=== PATIENT | female | born 1970 | race Caucasian/White ===

== ENCOUNTER → 2016-09-12 | Outpatient (CLI) | payer OTHER ==
[~2016-09-12] MED LIST: BACITAB3 PO; BENA25CA2 PO; CIPR500T89 PO; CLAR1TAB2 PO; COCO1000 PO; COLA100C PO; DEPO150I IM; FLAG500T PO; LEVA750T PO; MIRA3350 PO; NEXI40CA PO; TYLE325T5 PO; ULTR37.52 PO; VITA-130 PO; XARE15TA PO; XARE20TA PO
[2016-09-12 13:57] LABS: MEAN CORPUSCULAR HEMOGLOBIN 28.2 pg (27.0-33.0); MEAN CORPUSCULAR HGB CONC 33.1 g/dl (32.0-36.5); RED CELL DISTRIBUTION WIDTH 13.8 % (11.5-14.5); WHITE BLOOD COUNT 7.2 K/mm3 (4.0-10.0)
[2016-09-12 14:16] LABS: EOSINOPHILS 2 % (0-5)
[2016-09-12 14:26] LABS: ANION GAP 12 MEQ/L (8-16); BLOOD UREA NITROGEN 11 MG/DL (7-18); CALCIUM LEVEL 8.9 MG/DL (8.5-10.1); CARBON DIOXIDE LEVEL 26 MEQ/L (21-32); CHLORIDE LEVEL 103 MEQ/L (98-107); CHOLESTEROL LEVEL 229 MG/DL (<200); CREATININE FOR GFR 0.87 MG/DL (0.55-1.02); GLOMERULAR FILTRATION RATE > 60.0 (>58); GLUCOSE, FASTING 83 MG/DL (70-105); POTASSIUM SERUM 3.9 MEQ/L (3.5-5.1); SODIUM LEVEL 141 MEQ/L (136-145); TRIGLYCERIDES LEVEL 89 MG/DL (<150)
== END ==
LOC: M LAB 13:13
PROVIDERS: ATTEND Internal Medicine
DX: Z86.711 Personal history of pulmonary embolism (principal)

== ENCOUNTER → 2017-11-01 | Outpatient (REF) | payer OTHER | LOC: M LAB REF 13:16 | DX: L02.411 Cutaneous abscess of right axilla (principal) ==

== ENCOUNTER → 2021-01-20 | Outpatient (CLI) | payer OTHER ==
[~2021-01-20] MED LIST changes: +BACITAB PO; -BACITAB3 PO; +CIPR-249 PO; -CIPR500T89 PO; -COLA100C PO; +COLA100C5 PO; -LEVA750T PO; +LEVA750T7 PO; -ULTR37.52 PO; +ULTR37.54 PO; -VITA-130 PO; +VITA-243 PO
--- NOTE | 2021-01-22 07:09 | REP ---
INDICATION: THYROID NODULE COMPARISON: 06/23/2020 TECHNIQUE: Garcia scale and color evaluation of the thyroid gland using the linear high frequency transducer. FINDINGS: Right thyroid lobe measures 5.0 x 2.8 x 2.0 cm and includes upper pole isodose/hypoechoic nodule measuring 19 x 13 x 13 mm, midpole isoechoic nodule measuring 12 x 10 x 10 mm, and lower pole cystic nodules measuring 8 x 6 x 6 mm and 14 x 12 x 10 mm. Left thyroid lobe measures 4.9 x 2.2 x 2.3 cm and includes 10 x 9 x 6 mm midpole hypoechoic nodule. Isthmus measures 8 mm in width and includes 16 x 16 x 8 mm left-sided isoechoic nodule. IMPRESSION: Thyroid nodules as described above relatively stable when allowing for differences in technique. <Electronically signed by Curtis Aldana > 01/22/21 0706
== END ==
LOC: M RAD 15:10
PROVIDERS: ATTEND Internal Medicine
DX: E04.2 Nontoxic multinodular goiter (principal)

== ENCOUNTER → 2023-01-11 | Outpatient (CLI) | payer OTHER ==
[~2023-01-11] MED LIST changes: +ULTR1TAB PO; -ULTR37.54 PO
== END ==
LOC: M WUC 15:50
PROVIDERS: ATTEND Physician Assistant Medical
DX: M19.072 Primary osteoarthritis, left ankle and foot (principal); M79.89 Other specified soft tissue disorders; L03.032 Cellulitis of left toe

== ENCOUNTER 2023-01-20 09:02 | Observation (INO) | payer OTHER ==
[~2023-01-20] VITALS: Ht 172.7 cm; Wt 119.1 kg
[2023-01-20] MEDS ORDERED: ACET-683 PO (09:25)
[2023-01-20] MEDS ORDERED: NITR100C2 PO (09:25)
[2023-01-20] MEDS ORDERED: NS 1,000 ML IV ONE (10:50)
[2023-01-20] MEDS ORDERED: KETOROLAC 30 MG/ML 1ML VIAL IV ONE (10:50)
[2023-01-20 11:05] LABS: BLOOD UREA NITROGEN 12 MG/DL (9-23); CALCIUM LEVEL 8.9 MG/DL (8.5-10.1); CARBON DIOXIDE LEVEL 24 MMOL/L (20-31); CHLORIDE LEVEL 105 MMOL/L (98-107); CREATININE FOR GFR 0.83 MG/DL (0.55-1.30); GLOMERULAR FILTRATION RATE > 60.0 (>51); GLUCOSE, FASTING 89 MG/DL (60-100); POTASSIUM SERUM 4.9 MMOL/L (3.5-5.1); SODIUM LEVEL 139 MMOL/L (136-145)
[2023-01-20 11:37] LABS: BASO % 0.6 % (0.0-1.0); EOS # 0.3 10^3/uL (0.0-0.5); EOS % 4.2 % (0.0-3.0); HEMATOCRIT 41.7 % (36.0-47.0); HEMOGLOBIN 13.7 g/dl (12.0-15.5); LYMPH # 1.5 10^3/uL (1.5-5.0); LYMPH % 24.2 % (24.0-44.0); MEAN CORPUSCULAR HEMOGLOBIN 28.5 pg (27.0-33.0); MEAN CORPUSCULAR HGB CONC 32.9 g/dl (32.0-36.5); MEAN CORPUSCULAR VOLUME 86.7 fl (80.0-96.0); MONO # 0.6 10^3/uL (0.0-0.8); MONO % 9.2 % (2.0-8.0); NEUTROPHILS # 3.8 10^3/uL (1.5-8.5); NEUTROPHILS % 61.5 % (36.0-66.0); PLATELET COUNT, AUTOMATED 187 10^3/uL (150-450); RED BLOOD COUNT 4.81 10^6/uL (4.00-5.40); WHITE BLOOD COUNT 6.2 10^3/uL (4.0-10.0)
[2023-01-20] MEDS ORDERED: ISOVUE-370 76% 100ML VIAL As Ordered ONE (11:59)
[2023-01-20] MEDS ORDERED: MORPHINE 2 MG/ML 1ML VIAL IV PRN (16:45)
[2023-01-20] MEDS ORDERED: ACETAMINOPHEN TAB 650MG DOSE (2X325MG) PO PRN (16:45)
[2023-01-20] MEDS ORDERED: HOME MED LIST COMPLETE! XX SCH (17:30)
[2023-01-20] MEDS ORDERED: **hydrALAZINE** 10 MG TAB PO PRN (22:15)
[2023-01-20] MEDS: NITROFURANTOIN (MACROBID) 100 MG CAP PO SCH (22:42)
[2023-01-20] MEDS: ENOXAPARIN 120MG/0.8ML SYRINGE SC SCH (22:43)
[2023-01-21] MEDS: ENOXAPARIN 120MG/0.8ML SYRINGE SC SCH (05:30)
[2023-01-21 06:00] VITALS: BP 120/80
[2023-01-21 06:16] LABS: HEMATOCRIT 38.2 % (36.0-47.0); HEMOGLOBIN 12.4 g/dl (12.0-15.5); MEAN CORPUSCULAR HEMOGLOBIN 28.1 pg (27.0-33.0); MEAN CORPUSCULAR HGB CONC 32.5 g/dl (32.0-36.5); MEAN CORPUSCULAR VOLUME 86.6 fl (80.0-96.0); PLATELET COUNT, AUTOMATED 177 10^3/uL (150-450); RED BLOOD COUNT 4.41 10^6/uL (4.00-5.40); WHITE BLOOD COUNT 5.4 10^3/uL (4.0-10.0)
[2023-01-21 07:00] LABS: BLOOD UREA NITROGEN 10 MG/DL (9-23); CALCIUM LEVEL 8.7 MG/DL (8.5-10.1); CARBON DIOXIDE LEVEL 25 MMOL/L (20-31); CHLORIDE LEVEL 105 MMOL/L (98-107); CREATININE FOR GFR 0.74 MG/DL (0.55-1.30); GLOMERULAR FILTRATION RATE > 60.0 (>51); GLUCOSE, FASTING 85 MG/DL (60-100); POTASSIUM SERUM 3.9 MMOL/L (3.5-5.1); SODIUM LEVEL 139 MMOL/L (136-145)
[2023-01-21] MEDS: NITROFURANTOIN (MACROBID) 100 MG CAP PO SCH (08:33)
[2023-01-21] MEDS ORDERED: ISOVUE-370 76% 100ML VIAL As Ordered ONE (11:52)
[2023-01-21 14:00] VITALS: BP 122/78
== END 2023-01-21 18:56 | disposition home or self-care (01) ==
LOC: M ED 09:02 → M ED INP 16:36 → M MSPAV 21:04
PROVIDERS: ADMIT Internal Medicine; ATTEND Internal Medicine
DX: R91.8 Other nonspecific abnormal finding of lung field (principal); R10.31 Right lower quadrant pain; Z86.718 Personal history of other venous thrombosis and embolism; Z86.711 Personal history of pulmonary embolism; N39.0 Urinary tract infection, site not specified; U07.1 COVID-19; G43.909 Migraine, unspecified, not intractable, without status migrainosus; K21.9 Gastro-esophageal reflux disease without esophagitis; Z86.79 Personal history of other diseases of the circulatory system; Z88.0 Allergy status to penicillin; Z88.5 Allergy status to narcotic agent; Z91.040 Latex allergy status; Z79.2 Long term (current) use of antibiotics
CPT/HCPCS: 36415; 71046; 71275; 74177; 80048; 81001; 83605; 83880; 84145; 84484; 85025; 85027; 85379; 87040; 87086; 87635; 93005; 93970; 96372; 96374; 99284; J1650; J1885; Q9967

== ENCOUNTER → 2023-02-27 | Outpatient (CLI) | payer OTHER ==
[~2023-02-27] MED LIST changes: +ACET-683 PO; +NITR100C2 PO
== END ==
LOC: M PLAIMG 14:31
PROVIDERS: ATTEND Internal Medicine
DX: R91.8 Other nonspecific abnormal finding of lung field (principal)

== ENCOUNTER → 2023-04-30 | Outpatient (CLI) | payer OTHER | LOC: M RAD 14:13 | PROVIDERS: ATTEND Internal Medicine | DX: E04.2 Nontoxic multinodular goiter (principal) ==

== ENCOUNTER → 2024-09-11 | Outpatient (CLI) | payer OTHER | LOC: M RAD 16:06 | PROVIDERS: ATTEND Internal Medicine | DX: R91.8 Other nonspecific abnormal finding of lung field (principal) ==

== ENCOUNTER → 2024-11-19 | Outpatient (CLI) | payer OTHER | LOC: M RAD 15:28 | PROVIDERS: ATTEND Internal Medicine | DX: E04.2 Nontoxic multinodular goiter (principal) ==

== ENCOUNTER → 2024-11-24 | Outpatient (CLI) | payer OTHER ==
[2024-11-24 11:45] LABS: ALBUMIN 3.8 G/DL (3.2-5.2); ALKALINE PHOSPHATASE 116 U/L (35-104); ALT/SGPT 23 U/L (7.0-40); AST/SGOT 18 U/L (<34); BILIRUBIN,TOTAL 0.3 MG/DL (0.3-1.2); BLOOD UREA NITROGEN 11 MG/DL (9-23); CALCIUM LEVEL 9.4 MG/DL (8.5-10.1); CARBON DIOXIDE LEVEL 28 MMOL/L (20-31); CHLORIDE LEVEL 104 MMOL/L (98-107); CREATININE FOR GFR 0.85 MG/DL (0.55-1.30); GLOMERULAR FILTRATION RATE > 60.0 (>51); GLUCOSE, FASTING 97 MG/DL (60-100); POTASSIUM SERUM 4.5 MMOL/L (3.5-5.1); SODIUM LEVEL 144 MMOL/L (136-145)
[2024-11-24 11:47] LABS: FOLATE 12.75 NG/ML (>5.4); THYROID STIMULATING HORMONE 0.812 uIU/ML (0.55-4.78); VITAMIN B12 LEVEL 399 PG/ML (211-911)
[2024-11-24 12:14] LABS: RHEUMATOID FACTOR QUANT < 3.5 IU/ML (<14)
[2024-11-24 13:13] LABS: HEMOGLOBIN A1c 5.2 % (4.0-6.0)
[2024-11-25 18:02] LABS: ANA PATTERN Nuclear, Homogeneous (NEGATIVE); ANA SCREEN, IFA POSITIVE (NEGATIVE); ANA TITER 1:40 titer (<1:40); SSA SJOGRENS A <1.0 NEG AI (<1.0 NEG); SSB SJOGRENS B <1.0 NEG AI (<1.0 NEG)
[2024-11-26 07:27] LABS: ALBUMIN SPEP 4.3 g/dL (3.8-4.8); ALPHA-1-GLOBULINS SO 0.3 g/dL (0.2-0.3); ALPHA-2-GLOBULINS SO 0.7 g/dL (0.5-0.9); BETA 2 GLOBULIN 0.5 g/dL (0.2-0.5); BETA-GLOBULIN SO 0.4 g/dL (0.4-0.6); GAMMA GLOBULINS SO 0.8 g/dL (0.8-1.7)
[2024-11-27 19:03] LABS: VITAMIN E(ALPHA TOCOPHEROL) 11.8 mg/L (5.7-19.9); VITAMIN E(GAMMA TOCOPHEROL) 2.2 mg/L (<=4.3)
== END ==
LOC: M LAB 10:19
PROVIDERS: ATTEND Psychiatry & Neurology Neurology
DX: R26.81 Unsteadiness on feet (principal); R41.89 Other symptoms and signs involving cognitive functions and awareness

== ENCOUNTER → 2025-03-29 | Outpatient (CLI) | payer OTHER | LOC: M LAB 15:39 | PROVIDERS: ATTEND Psychiatry & Neurology Neurology | DX: G35 Multiple sclerosis (principal); L93.0 Discoid lupus erythematosus ==

== ENCOUNTER → 2025-09-06 | Outpatient (CLI) | payer OTHER ==
[~2025-09-06] MED LIST changes: -COCO1000 PO; +PROHANCE 279.3MG/ML 15ML VIAL ONE; +PROHANCE 279.3MG/ML 5ML VIAL ONE; +[UNRECOGNIZED DRUG - CODE] PO
== END ==
LOC: M PLAIMG 14:11
PROVIDERS: ATTEND Psychiatry & Neurology Neurology
DX: R33.9 Retention of urine, unspecified (principal); R26.9 Unspecified abnormalities of gait and mobility